=== PATIENT | male | born 1945 | race Caucasian/White ===

== ENCOUNTER 2021-09-25 22:54 | Inpatient (IN) | payer OTHER ==
[~2021-09-25] VITALS: Ht 188 cm; Wt 99.3 kg
[~2021-09-25 22:54] MED LIST: ACETAMINOPHEN325 MG PO; ALDACTONE25 MG PO; BAYER CHEWABLE81 MG PO; BUMETANIDE1 MG PO; CHLORTHALIDONE25 MG PO; COZAAR100 MG PO; GLUCOPHAGE1000 MG PO; LANTUS100 UNIT/1 SQ; LASIX40 MG PO; LEVAQUIN500 MG PO; LIDOCAINE PAIN1 EACH TP; LIPITOR80 MG PO; MAGNESIUM400 MG PO; NITROGLYCERIN0.4 MG SL; NORVASC 5 MG TAB5 MG PO; OZEMPIC0.25 MG/0. SQ; PANTOPRAZOLE SO40 MG PO; PLAVIX75 MG PO; PROTONIX40 MG PO; TRADJENTA5 MG PO; ZANTAC150 MG PO
[2021-09-26 00:06] LABS: HEMOGLOBIN 11.7 gm/dl (14.0-17.5); RED BLOOD COUNT 3.8 M/UL (4.20-5.50); WHITE BLOOD COUNT 12.6 K/UL (4.5-11.0)
[2021-09-26 05:31] LABS: HEMOGLOBIN 9.9 gm/dl (14.0-17.5); WHITE BLOOD COUNT 15.7 K/UL (4.5-11.0)
[2021-09-26 05:34] LABS: RED BLOOD COUNT 3.24 M/UL (4.20-5.50)
[2021-09-26] MEDS ORDERED: COREG 25MG TAB25 MG PO (07:26)
[2021-09-26] MEDS ORDERED: NEURONTIN300 MG PO (07:31)
[2021-09-26] MEDS ORDERED: AMLODIPINE BESY10 MG PO (08:15)
[2021-09-26] MEDS ORDERED: LISINOPRIL5 MG PO (08:16)
[2021-09-26] MEDS ORDERED: ZAROXOLYN/DIULO5 MG PO (08:16)
[2021-09-26] MEDS ORDERED: BACTROBAN OINT22 GM TOP (08:16)
[2021-09-26] MEDS ORDERED: FEROSUL325 MG PO (08:18)
[2021-09-26] MEDS ORDERED: LANTUS SOL100 UNIT/1 SC (15:38)
[2021-09-26] MEDS ORDERED: BUMETANIDE2 MG PO (15:48)
[2021-09-26] MEDS ORDERED: ELIQUIS 2.5 MG2.5 MG PO (15:58)
[2021-09-26] MEDS ORDERED: MULTIVITAMIN1 EACH PO (15:59)
[2021-09-27 11:47] LABS: HEMOGLOBIN 10.2 gm/dl (14.0-17.5); RED BLOOD COUNT 3.36 M/UL (4.20-5.50)
--- NOTE | 2021-09-27 14:03 | NUR ---
MAGNESIUM LEVEL 1.5. MAG SULFATE ADMINISTERED PER PROTOCOL.
[2021-09-28 07:17] LABS: HEMOGLOBIN 10.6 gm/dl (14.0-17.5); RED BLOOD COUNT 3.46 M/UL (4.20-5.50); WHITE BLOOD COUNT 11.6 K/UL (4.5-11.0)
[2021-09-29] MEDS ORDERED: PROAIR HFA8.5 GM INH (10:43)
[2021-09-29] MEDS ORDERED: AZITHROMYCIN500 MG PO (10:43)
[2021-09-29] MEDS ORDERED: CEFUROXIME500 MG PO (10:43)
--- NOTE | 2021-09-29 10:59 | NUR ---
O2 SAT ON RM AIR 96. O2 SAT WITH AMBULATION 93. NO C/O SOB NOTED.
== END 2021-09-29 14:28 | disposition home or self-care (01) | DRG 871 ==
LOC: ER1 22:54 → M/S 09-26 01:15 → CDU 09-26 01:15 → M/S 09-26 14:22
PROVIDERS: Internal Medicine; Physician Assistant; ADMIT Internal Medicine
DX: A41.9 Sepsis, unspecified organism (principal); J18.9 Pneumonia, unspecified organism; R65.20 Severe sepsis without septic shock; J96.01 Acute respiratory failure with hypoxia; I50.32 Chronic diastolic (congestive) heart failure; I13.0 Hypertensive heart and chronic kidney disease with heart failure and stage 1 through stage 4 chronic kidney disease, or unspecified chronic kidney disease; N17.9 Acute kidney failure, unspecified; E87.3 Alkalosis; Z20.822 Contact with and (suspected) exposure to COVID-19; I25.10 Atherosclerotic heart disease of native coronary artery without angina pectoris; I48.0 Paroxysmal atrial fibrillation; N18.30 Chronic kidney disease, stage 3 unspecified; I49.5 Sick sinus syndrome; K21.9 Gastro-esophageal reflux disease without esophagitis; I73.9 Peripheral vascular disease, unspecified; E11.22 Type 2 diabetes mellitus with diabetic chronic kidney disease; E11.51 Type 2 diabetes mellitus with diabetic peripheral angiopathy without gangrene; K26.7 Chronic duodenal ulcer without hemorrhage or perforation; D64.9 Anemia, unspecified; G47.33 Obstructive sleep apnea (adult) (pediatric); E83.42 Hypomagnesemia; Z99.81 Dependence on supplemental oxygen; Z90.89 Acquired absence of other organs; Z95.5 Presence of coronary angioplasty implant and graft; Z95.0 Presence of cardiac pacemaker; Z95.1 Presence of aortocoronary bypass graft; Z88.8 Allergy status to other drugs, medicaments and biological substances; Z82.3 Family history of stroke; Z82.49 Family history of ischemic heart disease and other diseases of the circulatory system; Z87.891 Personal history of nicotine dependence
CPT/HCPCS: 0240U; 36415; 36600; 71045; 71046; 80048; 80053; 82550; 82553; 82803; 82962; 83605; 83735; 83880; 84100; 84484; 85025; 85610; 85652; 85730; 86140; 87040; 87081; 87880; 93005; 94760; 99285; J0456; J0696; J1335; J3475; J7030